=== PATIENT | female | born 1985 | race Caucasian/White ===

== ENCOUNTER 2025-01-14 09:25 | Outpatient (CLI) | payer OTHER, SELFPAY ==
[2025-01-15 16:53] LABS: HPV Source Cervix; HPV, High Risk by TMA Not Detected
[2025-01-22 19:20] LABS: Pap Test Reviewed by Path Done
== END 2025-01-14 09:26 | disposition home or self-care (01) ==
PROVIDERS: Visit Provider Physician Assistant
DX: Z13.220 Encounter for screening for lipoid disorders (principal); Z11.51 Encounter for screening for human papillomavirus (HPV); Z12.4 Encounter for screening for malignant neoplasm of cervix
CPT/HCPCS: 80061; 87624; 87625; 88141; 88142